=== PATIENT | female | born 1935 | race Caucasian/White ===

== ENCOUNTER 2018-07-21 07:19 | Day surgery (SDC) | payer MEDICARE ==
[2018-07-15 10:42] LABS: BASOPHILS % (AUTO) 0.5 % (0-1); EOSINOPHILS # (AUTO) 0.2 X10'3 (0-0.9); EOSINOPHILS % (AUTO) 2.9 % (0-6); LYMPHOCYTES % (AUTO) 28.2 % (21-51); MEAN CORPUSCULAR HEMOGLOBIN 31.6 PG (27.0-31.0); MEAN CORPUSCULAR HGB CONC 34.5 % (33.0-36.5); MEAN CORPUSCULAR VOLUME 91.5 FL (78-98); MEAN PLATELET VOLUME 8.3 FL (7.4-10.4); MONOCYTES # (AUTO) 0.6 X10'3 (0-0.9); MONOCYTES % (AUTO) 7.9 % (2-12); NEUTROPHILS # (AUTO) 4.3 X10'3 (1.8-7.7); NEUTROPHILS % (AUTO) 60.5 % (42-75); PRE OP HEMATOCRIT 37.7 % (35.0-45.0); PRE OP PLATELET COUNT 285 X10'3 (140-440); RED BLOOD COUNT 4.11 X10'6 (4.20-5.60); RED CELL DISTRIBUTION WIDTH 13.1 % (11.5-14.5)
[2018-07-15 10:44] LABS: CLARITY,URINE CLOUDY (Clear); COLOR,URINE YELLOW (Yellow); GLUCOSE, URINE NEGATIVE (Neg); KETONES,URINE NEGATIVE (Neg); LEUKOCYTE ESTERASE ,URINE NEGATIVE (Neg); NITRITES, URINE NEGATIVE (Neg); OCCULT BLOOD,URINE NEGATIVE (Neg); PROTEIN,URINE NEGATIVE (Neg); UROBILINOGEN,URINE 0.2 E.U/dL (0.2-1.0)
[2018-07-15 10:52] LABS: UA COLLECTION TYPE CLN CATCH MIDSTREAM
[2018-07-15 10:54] LABS: MUCUS STRANDS MANY /LPF (Neg); SQUAMOUS EPITHELIAL CELL,UR MANY /LPF (FEW)
[2018-07-15 10:56] LABS: BACTERIA,URINE 4+ /HPF (Neg); RBC,URINE 0-2 /HPF (0-2); WBC,URINE 0-4 /HPF (0-4)
[2018-07-15 10:57] LABS: ALBUMIN 3.1 G/DL (3.4-5.0); ALBUMIN/GLOBULIN RATIO 0.8 (1.1-1.5); ALKALINE PHOSPHATASE 41 IU/L (46-116); BLOOD UREA NITROGEN 16 MG/DL (7-18); BUN/CREATININE RATIO 18.8 (6.6-38.0); CALCIUM 8.7 MG/DL (8.5-10.1); CHLORIDE 104 MMOL/L (99-107); CREATININE 0.85 MG/DL (0.40-0.90); PRE OP ALT 14 U/L (30-65); PRE OP ANION GAP 7 (8-16); PRE OP AST 17 U/L (10-37); PRE OP BILIRUB, TOTAL 0.4 MG/DL (0.0-1.0); PRE OP GLUCOSE 95 MG/DL (70-104); PRE OP POTASSIUM 3.5 MMOL/L (3.4-5.1); PRE OP SODIUM 139 MMOL/L (135-145); TOTAL CARBON DIOXIDE 28.2 MMOL/L (24-32); TOTAL PROTEIN 7.2 G/DL (6.4-8.2); eGFR 64 ML/MIN
[~2018-07-21] VITALS: Ht 165.1 cm; Wt 62.7 kg
[~2018-07-21 07:19] MED LIST: CARV25TA2 PO; Cefazolin 2GM/50ML dext iso,osmotic IVPB IV ONE; DOCUMENT DATE & TIME OF BETA-BLOCKER PO ONE; ESTR0.6261 PO; HYDR25TA4 PO; VITAMIN B-12 PO; famotidine 20mg tablet PO ONE; ringers solution, lacted 1,000 ML IV SCH
[2018-07-21] MEDS ORDERED: ringers solution, lacted 1,000 ML IV SCH (08:34)
[2018-07-21] MEDS ORDERED: ondansetron/PF 4mg/2ml inj IV PRN (08:35)
[2018-07-21] MEDS ORDERED: hydrALAZINE 20mg/ml inj. IV PRN (08:35)
[2018-07-21] MEDS ORDERED: meperidine/PF 25mg/ml syringe IV PRN ×2 (08:35)
[2018-07-21] MEDS ORDERED: labetalol 20mg/4ml (5mg/ml) syringe IV PRN (08:35)
[2018-07-21] MEDS ORDERED: morphine 4 MG/ML inj SYRINge IV PRN ×2 (08:35)
[2018-07-21 09:00] VITALS: BP 139/85
[2018-07-21 09:01] VITALS: BP 139/85
[2018-07-21] MEDS ORDERED: LIDOcaine 1% 30ml preserv. free vial ONE ×2 (09:27→09:32)
[2018-07-21] MEDS ORDERED: fentaNYL/PF 50MCG/1 ML 2ML syringe ONE (09:40)
[2018-07-21] MEDS ORDERED: midazolam 2 mg/2 ml injection ONE ×2 (09:40→09:41)
[2018-07-21] MEDS ORDERED: propofol inj 20 ML IV ONE (09:41)
[2018-07-21] MEDS ORDERED: LIDOcaine 2% (20mg/ml) 5ml vial ONE (09:41)
[2018-07-21] MEDS ORDERED: BUPIVAcaine/PF 2.5mg/ml (0.25%) 10ml vial ONE (09:55)
[2018-07-21 10:17] VITALS: BP 122/61
[2018-07-21 10:27] VITALS: BP 120/57
[2018-07-21 10:37] VITALS: BP 128/60
[2018-07-21 10:47] VITALS: BP 126/64
== END 2018-07-21 10:57 | disposition home or self-care (01) ==
LOC: PAS 07:19
PROVIDERS: ATTEND Surgery
DX: D17.23 Benign lipomatous neoplasm of skin and subcutaneous tissue of right leg (principal); I25.2 Old myocardial infarction; I49.8 Other specified cardiac arrhythmias; I10 Essential (primary) hypertension; E78.5 Hyperlipidemia, unspecified; M06.9 Rheumatoid arthritis, unspecified; Z90.710 Acquired absence of both cervix and uterus; Z87.891 Personal history of nicotine dependence; Z88.5 Allergy status to narcotic agent; Z88.1 Allergy status to other antibiotic agents; Z90.722 Acquired absence of ovaries, bilateral; Z98.41 Cataract extraction status, right eye; Z98.42 Cataract extraction status, left eye; Z79.899 Other long term (current) drug therapy; Z82.49 Family history of ischemic heart disease and other diseases of the circulatory system
CPT/HCPCS: 27339; 36415; 80053; 81001; 85025; 93005; A6446; A6449; J0690; J2001; J2250; J2704; J3010; J3490; 88304; A7000; J7120

== ENCOUNTER 2024-03-07 19:59 | Emergency (ER) | payer MEDICARE ==
[~2024-03-07] VITALS: Ht 165.1 cm; Wt 63.6 kg
[~2024-03-07 19:59] MED LIST changes: -Cefazolin 2GM/50ML dext iso,osmotic IVPB IV ONE; -DOCUMENT DATE & TIME OF BETA-BLOCKER PO ONE; -famotidine 20mg tablet PO ONE; -ringers solution, lacted 1,000 ML IV SCH
[2024-03-07 20:02] VITALS: TEMP 98.4
[2024-03-07 21:08] LABS: APTT 22 SECONDS (22-32); INR 0.9 INR; PROTHROMBIN TIME 10.2 SECONDS (9.0-12.0)
[2024-03-07 21:09] LABS: BASOPHILS # (AUTO) 0.1 X10'3 (0-0.2); BASOPHILS % (AUTO) 1.5 % (0-1); EOSINOPHILS # (AUTO) 0.4 X10'3 (0-0.9); EOSINOPHILS % (AUTO) 5.4 % (0-6); HEMOGLOBIN 11.4 g/dl (12.0-16.0); LYMPHOCYTES # (AUTO) 2.2 X10'3 (1.1-4.8); LYMPHOCYTES % (AUTO) 33.5 % (21-51); MEAN CORPUSCULAR HEMOGLOBIN 31.6 PG (27.0-31.0); MEAN CORPUSCULAR HGB CONC 34.5 g/dL (33.0-36.5); MEAN CORPUSCULAR VOLUME 91.7 FL (78-98); MEAN PLATELET VOLUME 8.3 FL (7.4-10.4); MONOCYTES # (AUTO) 0.7 X10'3 (0-0.9); MONOCYTES % (AUTO) 10.1 % (2-12); NEUTROPHILS # (AUTO) 3.3 X10'3 (1.8-7.7); NEUTROPHILS % (AUTO) 49.5 % (42-75); PLATELET COUNT 288 X10'3 (140-440); WHITE BLOOD COUNT 6.7 X10'3 (4.5-11.0)
[2024-03-07] MEDS: hydrALAZINE 20mg/ml inj. IV ONE (21:13)
[2024-03-07] MEDS: LORazepam 2 mg/ml vial IV ONE (21:15)
[2024-03-07 23:30] VITALS: BP 138/58; PULSE 58; RESP 16; O2SAT 96
== END 2024-03-08 01:35 | disposition home or self-care (01) ==
LOC: ER 19:59
DX: R04.0 Epistaxis (principal); I48.91 Unspecified atrial fibrillation; I11.0 Hypertensive heart disease with heart failure; I50.9 Heart failure, unspecified; Z88.8 Allergy status to other drugs, medicaments and biological substances
CPT/HCPCS: 36415; 85025; 85610; 85730; 96374; 96375; 99284; J0360; J2060